=== PATIENT | male | born 1930 | race Caucasian/White ===

== ENCOUNTER 2016-04-12 13:11 | Outpatient (CLI) | payer MEDICARE | END 2016-04-12 13:12 | LOC: CARD 13:11 | PROVIDERS: ATTEND Internal Medicine Cardiovascular Disease | DX: Z95.2 Presence of prosthetic heart valve (principal) | CPT/HCPCS: 93306; G0463 ==

== ENCOUNTER 2016-05-03 11:20 | Outpatient (CLI) | payer MEDICARE ==
--- NOTE | 2016-05-03 14:58 | Diagnostic Imaging Report ---
[facility] [id number] [facility].[address] [address] Report Submission Date: May 03, 2016 1:05:14 PM RELEASE AND TECHNICAL RECORDS CLERK Patient Study Name: Conner MEJÍA Date: May 03, 2016 11:41:33 AM RELEASE AND TECHNICAL RECORDS CLERK Modality Type: CR Gender: M Description: CHEST : [birth year] Institution: [facility] Physician LIANNA CARMEN - OP Chest two views HISTORY: Cough, dyspnea, COPD FINDINGS: Emphysema, aortic valve replacement, mitral annulus calcification, and aortic atherosclerotic calcifications are observed. Hazy opacity overlies the cardiac apex on the lateral film and may represent lingular atelectasis, scar, or infiltrate. No pleural effusions are identified. Heart size is normal. IMPRESSION: Emphysema. Aortic valve replacement. Lingular infiltrate, atelectasis, or scar. Electronically signed on May 03, 2016 1:05:14 PM RELEASE AND TECHNICAL RECORDS CLERK by: Oren KAPOOR
== END 2016-05-03 11:30 ==
LOC: LAB 11:20
PROVIDERS: ATTEND Family Medicine
DX: J44.9 Chronic obstructive pulmonary disease, unspecified (principal)
CPT/HCPCS: 71020; 87400

== ENCOUNTER 2016-10-25 15:13 | Outpatient (CLI) | payer MEDICARE | END 2016-10-25 15:14 | LOC: CARD 15:13 | PROVIDERS: ATTEND Internal Medicine Cardiovascular Disease | DX: Z95.2 Presence of prosthetic heart valve (principal); I10 Essential (primary) hypertension; J44.9 Chronic obstructive pulmonary disease, unspecified | CPT/HCPCS: G0463 ==

== ENCOUNTER 2017-11-14 11:16 | Outpatient (CLI) | payer MEDICARE | END 2017-11-14 11:18 | LOC: CARD 11:16 | PROVIDERS: ATTEND Internal Medicine Cardiovascular Disease | DX: J44.9 Chronic obstructive pulmonary disease, unspecified (principal); Z95.2 Presence of prosthetic heart valve; I10 Essential (primary) hypertension | CPT/HCPCS: G0463 ==